=== PATIENT | female | born 1955 | race Caucasian/White ===

== ENCOUNTER 2016-11-14 08:24 | Day surgery (SDC) | payer OTHER ==
[~2016-11-14] VITALS: Ht 152.4 cm; Wt 56.7 kg
[2016-11-14 10:00] VITALS: Ht 152.4 cm; Wt 56.7 kg
[2016-11-14 10:45] VITALS: BP 146/72; PULSE 68; RESP 16
[2016-11-14] MEDS ORDERED: ATORVASTATIN PO (10:45)
[2016-11-14] MEDS ORDERED: METFORMIN PO (10:45)
[2016-11-14] MEDS ORDERED: LISINOPRIL PO (10:45)
[2016-11-14] MEDS ORDERED: ASPI81TA3 PO (10:45)
--- NOTE | 2016-11-14 11:24 | GILP ---
DATE OF PROCEDURE: 11/14/2016 NAME OF PROCEDURE: Colonoscopy. SURGEON: Nikolas Bhandari MD PREOPERATIVE DIAGNOSIS: Screening colonoscopy. POSTOPERATIVE DIAGNOSES: 1. Colonoscopy all the way to the cecum. 2. Internal hemorrhoids. 3. No colon neoplasm was identified. INDICATION FOR THE PROCEDURE: Ms. Angelica Mays is a 61-year-old female patient who was scheduled for screening colonoscopy. The procedure and possible complications were well explained to the patient. The patient understood and consented to the procedure. DESCRIPTION OF PROCEDURE: Under the influence of fentanyl and Versed, the colonoscope was carefully introduced in the rectum and under direct vision, it was advanced all the way to the cecum. FINDINGS: The patient had internal hemorrhoids. No colon neoplasm was identified. She tolerated the procedure very well and there was no complication from the procedure. At the end of the procedure, she was awake with stable vital signs and she was discharged home to the care of h er family. IMPRESSION: 1. Colonoscopy all the way to the cecum. 2. Internal hemorrhoids. 3. No colon neoplasm was identified. PLAN: Next screening colonoscopy in 10 years. Dictated By: NIKOLAS BHANDARI MD GD/LUDA Conf#: [id number] DID#: [id number] CC: NIKOLAS BHANDARI MD;*EndCC*
[2016-11-14 11:30] VITALS: BP 97/51; PULSE 69; RESP 19
[2016-11-14] MEDS ORDERED: MIDAZOLAM 1 MG/ML 2 ML INJ ONE ×2 (12:35)
[2016-11-14] MEDS ORDERED: FENTAnyl 50 MCG/ML VIAL ONE (12:35)
== END 2016-11-14 11:39 | disposition home or self-care (01) ==
LOC: GIL 08:24
PROVIDERS: ATTEND Internal Medicine Gastroenterology
DX: Z12.11 Encounter for screening for malignant neoplasm of colon (principal); K64.8 Other hemorrhoids; I10 Essential (primary) hypertension; E11.9 Type 2 diabetes mellitus without complications
CPT/HCPCS: 45378; 82962; J2250; J3010

== ENCOUNTER 2019-03-29 21:12 | Emergency (ER) | payer OTHER ==
[~2019-03-29] VITALS: Ht 152.4 cm; Wt 59.1 kg
[~2019-03-29 21:12] MED LIST: ASPI-903 PO; ATORVASTATIN PO; LISINOPRIL PO; METFORMIN PO
[2019-03-29 21:20] VITALS: Ht 152.4 cm; Wt 59.1 kg
--- NOTE | 2019-03-29 23:49 | ERD ---
ER Documentation Chief Complaint Chief Complaint DYSURIA, PELVIC PAIN X'S 3 DAYS HPI Patient is a 63 years old female with past medical history of hypertension presenting to the clinic for right-sided flank pain, fever, dysuria, urinary frequency, urinary urgency, bladder fullness X 3 days. Patient admits to taking Motrin with resolution of fever. She denies chills, night sweats, vaginal discharge, saddle anesthesia, hematuria, chest pain, shortness of breath, constipation, hematochezia, diarrhea. ROS All systems reviewed and are negative except as per history of present illness. Medications Home Meds Reported Medications Aspirin* (Aspirin* Chew) 81 Mg Tab.chew, 81 MG PO DAILY, TAB.CHEW 11/14/16 [Atorvastatin] No Conflict Check, PO DAILY 11/14/16 [Metformin] No Conflict Check, PO DAILY 11/14/16 [Lisinopril] No Conflict Check, PO DAILY 11/14/16 Allergies Allergies: Coded Allergies: No Known Allergy (Unverified , 11/14/16) PMhx/Soc History of Surgery: No Anesthesia Reaction: No Hx Neurological Disorder: No Hx Respiratory Disorders: No Hx Cardiac Disorders: Yes (HTN) Hx Psychiatric Problems: No Hx Miscellaneous Medical Probl: Yes (HIGH CHOLESTEROL) Hx Alcohol Use: No Hx Substance Use: No Hx Tobacco Use: No Smoking Status: Never smoker Physical Exam Vitals Vital Signs Date Temp Pulse Resp B/P (MAP) Pulse Ox O2 O2 Flow FiO2 Time Delivery Rate 03/29/19 98.0 98 18 106/56 96 21:20 (73) Physical Exam Const: No acute distress Head: Atraumatic Eyes: Normal Conjunctiva Resp: Clear to auscultation bilaterally Cardio: Regular rate and rhythm, no murmurs Abd: Soft, non tender, non distended. Normal bowel sounds. Negative Vivar sign, Rovsing sign, McBurney's point tenderness, guarding, rebound tenderness, Carranza Frey sign, Darek sign Skin: No petechiae or rashes Back: No midline or flank tenderness. Negative CVAT. Neur: Awake and alert Psych: Normal Mood and Affect Result Diagram: 03/30/19 0001 Results 24 hrs Laboratory Tests Test 03/30/19 00:01 White Blood Count 10.8 10^3/ul Red Blood Count 3.86 10^6/ul Hemoglobin 11.7 g/dl Hematocrit 35.9 % Mean Corpuscular Volume 93.0 fl Mean Corpuscular Hemoglobin 30.3 pg Mean Corpuscular Hemoglobin Concent 32.6 g/dl Red Cell Distribution Width 13.2 % Platelet Count 204 10^3/UL Mean Platelet Volume 10.9 fl Immature Granulocytes % 0.400 % Neutrophils % 79.0 % Lymphocytes % 10.2 % Monocytes % 10.0 % Eosinophils % 0.0 % Basophils % 0.4 % Nucleated Red Blood Cells % 0.0 /100WBC Immature Granulocytes # 0.040 10^3/ul Neutrophils # 8.6 10^3/ul Lymphocytes # 1.1 10^3/ul Monocytes # 1.1 10^3/ul Eosinophils # 0.0 10^3/ul Basophils # 0.0 10^3/ul Nucleated Red Blood Cells # 0.0 10^3/ul Urine Color STRAW Urine Clarity SLIGHTLY CLOUDY Urine pH 6.0 Urine Specific [place] 1.002 Urine Ketones NEGATIVE mg/dL Urine Nitrite NEGATIVE mg/dL Urine Bilirubin NEGATIVE mg/dL Urine Urobilinogen NEGATIVE mg/dL Urine Leukocyte Esterase 3+ Maynor/ul Urine Microscopic RBC 0 /HPF Urine Microscopic WBC 25 /HPF Urine Bacteria FEW /HPF Urine Hemoglobin 2+ mg/dL Urine Glucose NEGATIVE mg/dL Urine Total Protein NEGATIVE mg/dl Current Medications Medications Dose Sig/Tae Start Time Status Last (Trade) Ordered Route PRN Stop Time Admin Dose Reason Admin 200 mg ONCE ONCE 03/30/19 DC 03/30/19 Phenazopyridi PO 00:00 00:08 ne HCl 03/30/19 00:01 (Pyridium) Procedures/MDM Patient was seen and evaluated for right-sided flank pain and dysuria without co mplications. Urinalysis and CBC revealed leukocyte esterase, urine WBC, urine bacteria otherwise unremarkable. Patient was given Pyridium 200 mg in ED. Patient stable ready for discharge. Follow-up with PCP. Patient will be discharged with Pyridium and Cipro 250 mg p.o. twice daily X 5 days for UTI. Departure Diagnosis: Primary Impression: UTI (urinary tract infection) Urinary tract infection type: site unspecified Hematuria presence: without hematuria Qualified Codes: N39.0 - Urinary tract infection, site not specified Condition: Stable Patient Instructions: Understanding Urinary Tract Infections (UTIs) Referrals: [facility] Additional Instructions: Paciente aconseja volver a Departamento de urgencias inmediatamente para sntomas nuevos o que empeoran . Paciente aconseja posteriores con el PCP en 2-3 masters . Paciente verbaliza la comprehensin y est de acuerdo con el tratamiento y el curso de accin. Si el paciente no tiene ninguna de atencin primaria pueden seguir con [facility] [id number] [place] [address] o [facility] + [address] [address] ISAC SCHULER PA-C Mar 29, 2019 23:49
[2019-03-30] MEDS ORDERED: PHENAZOPYRIDINE 100 MG TAB PO ONE
[2019-03-30] MEDS ORDERED: PHEN-537 PO (01:05)
[2019-03-30] MEDS ORDERED: CIPR-193 PO (01:05)
[2019-03-30 01:46] VITALS: BP 123/58; PULSE 64; RESP 16
== END 2019-03-30 01:47 | disposition home or self-care (01) ==
LOC: FTE 21:12
DX: N39.0 Urinary tract infection, site not specified (principal)
CPT/HCPCS: 81001; 85025; Z7502; Z7610; 99283